=== PATIENT | female | born 1935 | race Caucasian/White ===

== ENCOUNTER 2016-12-20 08:54 | Emergency (ER) | payer MEDICARE ==
[~2016-12-20] VITALS: Ht 163.8 cm; Wt 61.7 kg
--- NOTE | 2016-12-20 09:39 | PHYS DOC ---
Past Medical History Past Medical History: A-Fib, Hypertension Additional Past Medical Histor: back compression fx from horse incident Past Surgical History: Appendectomy, Cholecystectomy, Hysterectomy, Knee Replacement Additional Past Surgical Histo: cataracts; r shoulder Alcohol Use: None Drug Use: None Adult General Chief Complaint Chief Complaint: HEAD INJURY/TRAUMA HPI HPI 81-year-old female presenting to the emergency department today after walking down 2 stairs and sustaining a mechanical fall and hitting her head on a chair. She is on warfarin. 4 atrial fibrillation. She has a headache that is mild nonradiating in the posterior region of her head and without alleviating factors. Her family brings her in for evaluation. Review of systems is negative for chest pain shortness of breath fevers chills numbness weakness tingling or vision changes. All other review of systems is negative unless otherwise noted in history of present illness. Emergency department course: 81-year-old female sustaining a mechanical fall with head injury. The patient did not lose consciousness. She denies presyncopal or syncopal symptoms. Triage vital signs afebrile normal heart rate. Blood pressure is elevated 195/113. Pertinent physical exam shows a normal neurologic exam otherwise unremarkable. The patient does have mild ecchymosis on the left forehead. No depressed skull fracture palpated. CT of the head and neck were obtained and neg for acute path. The patient was then discharged home in stable condition to follow up with their primary care physician over the next 2-3 days. They were to return if their symptoms worsened or if they were concerned for any reason. [id number] discharge instructions and return precautions were given. Patient's questions were answered to their satisfaction. Patient is comfortable plan. Review of Systems Review of Systems SEE ABOVE. Current Medications Current Medications Current Medications Medications (Trade) Dose Ordered Sig/Suleman Start Time Stop Time Status Last Admin Dose Admin Labetalol HCl (Normodyne) 20 mg 1X ONCE 12/20/16 10:15 12/20/16 10:16 DC 12/20/16 10:15 20 MG Allergies Allergies Allergies Coded Allergies Type Severity Reaction Last Updated Verified diphenhydramine Allergy Mild itching 12/20/16 Yes Sulfa (Sulfonamide Antibiotics) Allergy Unknown 12/20/16 Yes Uncoded Allergies Type Severity Reaction Last Updated Verified narcotics Adverse Reaction Mild nausea 12/20/16 Physical Exam Physical Exam SEE ABOVE Constitutional: Well developed, well nourished, no acute distress, non-toxic appearance. HENT: Normocephalic, see above, bilateral external ears normal, oropharynx moist , no oral exudates, nose normal. [] Eyes: PERRLA, EOMI, conjunctiva normal, no discharge. [] Neck: Normal range of motion, no tenderness, supple, no stridor. Cardiovascular:Heart rate regular rhythm, no murmur [] Lungs & Thorax: Bilateral breath sounds clear to auscultation Abdomen: Bowel sounds normal, soft, no tenderness, no masses, no pulsatile masses. [] Skin: Warm, dry, no erythema, no rash. Back: No tenderness, no CVA tenderness. [] Extremities: No tenderness, no cyanosis, no clubbing, ROM intact, no edema. [] Neurologic: Mental status: Awake oriented and alert x3 Cranial nerves: Extraocular movements intact, eyebrows leroy bilaterally smile symmetric, uvula elevation, shoulder shrug intact, tongue protrusion normal DTRs: 2+ Sensation: equal and normal in all extremities Strength: 5/5 in upper and lower extremities bilaterally Psychologic: Affect normal, judgement normal, mood normal. [] Current Patient Data Vital Signs Vital Signs Date Time Temp Pulse Resp B/P (MAP) Pulse Ox O2 Delivery O2 Flow Rate FiO2 12/20/16 10:15 72 192/92 12/20/16 09:00 97.9 18 97 Room Air 97.9 EKG EKG [] Radiology/Procedures Radiology/Procedures [] Course & Med Decision Making Course & Med Decision Making Pertinent Labs and Imaging studies reviewed. (See chart for details) [] Dragon Disclaimer Dragon Disclaimer This electronic medical record was generated, in whole or in part, using a voice recognition dictation system. Departure Departure Impression: Primary Impression: Head injury Disposition: HOME, SELF-CARE Condition: STABLE Referrals: THERON LYNN MD Patient Instructions: Head Injury, Adult Additional Instructions: Thank you for allowing us to participate in your care today. Followup with your primary care physician in 3 days if your symptoms do not improve. Call your Primary Doctor tomorrow and inform them of your visit today. If you do not have a primary care provider you can ask for a list of our primary care providers. Return to the emergency department you have any new or concerning findings. This should be evaluated by the primary care physician and any necessary consulting services for continued management within a few days after discharge. Return to emergency room if you have any new or concerning symptoms including but not limited to fever, chills, nausea, vomiting, intractable pain, any new rashes, chest pain, shortness of air, uncontrolled bleeding, difficulty breathing, and/or vision loss. MALACHI TARIQ MD Dec 20, 2016 09:39
[2016-12-20] MEDS ORDERED: LABETALOL 20 MG/4 ML DISP.SYRIN. IVP ONE (10:15)
--- NOTE | 2016-12-20 10:22 | RAD ---
CT of the head without contrast, 12/20/2016: History: Head and neck trauma The ventricles are within normal limits in size. There is no shift of the midline structures. There is no evidence of acute intracranial hemorrhage or mass effect. There are minimal deep white matter lucencies compatible with chronic ischemic change. 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 There is calcific plaquing of the distal internal carotid and vertebral arteries. No abnormal extra-axial fluid collection or mass is seen. IMPRESSION: 1. Chronic findings as described above. 2. No acute intracranial abnormality is detected. CT of the cervical spine without contrast, 12/20/2016: Noncontrast scans were obtained with multiplanar reconstructions produced. The vertebral heights are well-maintained. No acute fracture or dislocation is evident. There is a focal area of sclerosis within the left side of the C6 vertebral body without evidence of bone destruction. There is moderate hypertrophic degenerative change at multiple facet joints bilaterally. There is fusion of the right facet joints at C3-4 and the left facet joints at C2-3 There is extensive degenerative change at the articulation between the odontoid process and the anterior arch of C1. No high-grade central spinal stenosis is evident. IMPRESSION: 1. Moderate multilevel degenerative change.. 2. Sclerosis within the left side of the C6 vertebral body is most likely benign. A blastic metastasis cannot be entirely excluded. 3. No acute bony abnormality is detected. PQRS Compliance Statement: One or more of the following individualized dose reduction techniques were utilized for this examination: 1. Automated exposure control 2. Adjustment of the mA and/or kV according to patient size 3. Use of iterative reconstruction technique
[2016-12-20 11:07] VITALS: BP 161/84
== END 2016-12-20 11:14 | disposition home or self-care (01) ==
LOC: ER 08:54
DX: S09.90XA Unspecified injury of head, initial encounter (principal); I10 Essential (primary) hypertension; I48.91 Unspecified atrial fibrillation; Z90.710 Acquired absence of both cervix and uterus; Z90.49 Acquired absence of other specified parts of digestive tract; Z96.651 Presence of right artificial knee joint; Z88.2 Allergy status to sulfonamides; Z88.5 Allergy status to narcotic agent; Z88.8 Allergy status to other drugs, medicaments and biological substances; Z79.01 Long term (current) use of anticoagulants; W07.XXXA Fall from chair, initial encounter; Y93.89 Activity, other specified; Y99.8 Other external cause status; Y92.89 Other specified places as the place of occurrence of the external cause
CPT/HCPCS: 70450; 72125; 96374; 99284; J3490